=== PATIENT | female | born 1945 | race Caucasian/White ===

== ENCOUNTER → 2018-04-11 | Outpatient (CLI) | payer MEDICARE, OTHER ==
[~2018-04-11] MED LIST: Prinivil10 MG PO
== END | disposition home or self-care (01) ==
LOC: LAB SHORT 12:41 → OLS 12:41
PROVIDERS: Obstetrics & Gynecology Gynecology
DX: Z91.89 Other specified personal risk factors, not elsewhere classified (principal)
CPT/HCPCS: 87624; G0123

== ENCOUNTER → 2021-05-02 | Outpatient (CLI) | payer MEDICARE, OTHER ==
[~2021-05-02] MED LIST changes: +CEPH500 PO; +HYDR1TAB94 PO; +Nicoderm Cq1 EAC1 TOP
== END ==
LOC: LAB SHORT 11:36 → LAB 11:36
DX: D48.5 Neoplasm of uncertain behavior of skin (principal)
CPT/HCPCS: 88305

== ENCOUNTER 2023-07-05 05:39 | Day surgery (SDC) | payer MEDICARE, OTHER ==
[~2023-07-05] VITALS: Ht 157.5 cm; Wt 63.0 kg
[~2023-07-05 05:39] MED LIST changes: +ALEN70 PO; +HYDCHL25 PO; +LISI20 PO; +XARELTO20 MG PO
[2023-07-05 06:37] VITALS: BP 146/94
[2023-07-05 06:46] VITALS: BP 126/73
[2023-07-05 07:12] VITALS: BP 105/66
[2023-07-05 07:15] VITALS: BP 103/62
[2023-07-05 07:33] VITALS: BP 108/66
[2023-07-05 07:50] VITALS: BP 101/66
--- NOTE | 2023-07-05 08:10 | NUR ---
PT AND VERBALIZED UNDERSTANDING OF WRITTEN AND VERBAL D/C INST. IV REMVOVED. PT TAKEN OUT OF THE HRT CENTER VIA W/C.
== END 2023-07-05 22:45 | disposition home or self-care (01) ==
LOC: MHTC 05:39
DX: I47.29 Other ventricular tachycardia (principal); R93.1 Abnormal findings on diagnostic imaging of heart and coronary circulation; I10 Essential (primary) hypertension; I48.0 Paroxysmal atrial fibrillation; Z95.0 Presence of cardiac pacemaker; E66.3 Overweight; Z68.25 Body mass index [BMI] 25.0-25.9, adult; M81.0 Age-related osteoporosis without current pathological fracture; I35.0 Nonrheumatic aortic (valve) stenosis
CPT/HCPCS: 93312; 93325; 99152; A9270; J2250; J2310; J3010; J7030